=== PATIENT | female | born 2000 | race Caucasian/White ===

== ENCOUNTER → 2020-08-27 14:54 | Outpatient (REF) | payer OTHER, SELFPAY ==
--- NOTE | 2020-08-27 15:02 | ECG_ITS ---
Test Reason : COVID HX Blood Pressure : / mmHG Vent. Rate : 068 BPM Atrial Rate : 068 BPM P-R Int : 110 ms QRS Dur : 074 ms QT Int : 378 ms P-R-T Axes : 013 064 036 degrees QTc Int : 401 ms Sinus rhythm with short KS with Premature atrial complexes Otherwise normal ECG No previous ECGs available Referred By: Jin De Luna Electronically Signed By:David Churchill
== END ==
LOC: HO.CARD 14:54
PROVIDERS: PCP Specialist; Visit Provider Pediatrics
DX: U07.1 COVID-19 (principal)
CPT/HCPCS: 93005

== ENCOUNTER 2025-04-19 10:27 | Outpatient (REF) | payer OTHER, SELFPAY ==
[2025-04-19 14:35] LABS: Hematocrit 38.3 % (37.0-47.0); Hemoglobin 13.1 g/dl (12.0-16.0); Mean Corpuscular HGB Conc 34.2 g/dl (31.0-35.0); Mean Corpuscular Hemoglobin 31.1 pg (27.0-33.0); Mean Corpuscular Volume 91.0 fL (80.0-98.0); NRBC Abs Auto 0.000 X10*3/uL (0.0-0.012); NRBC Pct Auto 0.0 /100WBC (0.0-0.2); Platelet Count 213 X10*3/uL (160-400); Red Blood Count 4.21 X10*6/uL (4.20-5.50); White Blood Count 6.3 X10*3/uL (4.8-10.8)
[2025-04-19 14:52] LABS: Alanine Aminotransferase 11 U/L (0-31); Albumin Level 4.2 g/dL (3.5-5.0); Alkaline Phosphatase 57 U/L (39-117); Anion Gap 8 (12-20); Aspartate Amino Transferase 19 U/L (5-31); Blood Urea Nitrogen 13 mg/dL (9-16); Calcium 8.7 mg/dL (8.4-10.2); Carbon Dioxide 26 mmol/L (22-29); Chloride 108 mmol/L (96-108); Cholesterol 181 mg/dL (<200); Estimated Glomerular Filt Rate > 60; HDL Cholesterol 67 mg/dL (>40); Potassium 4.3 mmol/L (3.3-5.1); Sodium 138 mmol/L (135-145); Total Protein 7.1 g/dL (6.5-8.0); Triglycerides 79 mg/dL (<150)
== END 2025-04-19 10:28 | disposition home or self-care (01) ==
LOC: HO.WFDLDS 10:27
PROVIDERS: PCP Physician Assistant Medical; Visit Provider Physician Assistant Medical
DX: Z00.00 Encounter for general adult medical examination without abnormal findings (principal); Z13.6 Encounter for screening for cardiovascular disorders
CPT/HCPCS: 36415; 80053; 80061; 85027; 96127; 99385

== ENCOUNTER 2025-04-19 10:27 | Outpatient (AMB) | payer OTHER, SELFPAY ==
--- NOTE | 2025-04-19 10:32 | A.OFFPC_ITS ---
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 Patient sees cardiology. Has been since she was a child. Allergies No Known Allergies (No Known Allergies*) Allergy (Unverified 04/19/25 10:34) Tobacco use date assessed: 04/19/25 Dental Screening Dental Screen Date: 04/19/25 Did you have a dental visit in the last 12 months?: Yes Did you have a dental problem in the last 6 months where you did not have access to dental care?: No Was dental information given to patient?: Patient has dentist HPI HPI Comments History of Present Illness Details This is a 24-year-old female with no significant past medical history presenting to establish care. She is due for a physical. Records transfer pending. She is unsure of the date of the last tetanus immunization. She will sign a release form so we can get the records sent over. She goes to [facility] and [facility]. She is on an oral contraceptive pill She saw Cardiology as a child for ectopic beats. This has not been an issue in adulthood. She works at [employer]. She weight lifts and does cardio and follows a healthy diet. She has no medical concerns today. ROS: Constitutional: No unexplained weight loss, fever, chills, fatigue or night sweats. Eyes: No vision changes, blurry vision, double vision, eye pain, eye redness, eye discharge. ENT: No hearing loss, sneezing, congestion, runny nose or sore throat. Respiratory: No shortness of breath, cough or sputum production. Cardiovascular: No chest pain, chest pressure or chest discomfort. No palpitations or pedal edema. Gastrointestinal: No anorexia, nausea, vomiting or diarrhea. No abdominal pain or blood in stool. Genitourinary: No dysuria, hematuria, urinary frequency. Neurologic: No headache, dizziness, syncope, unilateral weakness, ataxia, numbness or tingling in the extremities. Musculoskeletal: No muscle pain, back pain, joint pain or swelling. Hematologic/Lymphatics: No bleeding or bruising. No painful lymph nodes. Skin: No rash or itching. Endocrine: No cold or heat intolerance. No polyuria or polydipsia. Psychiatric: No depression or anxiety. No SI/HI. Physical exam: Constitutional: Alert, in no distress. Head: Normocephalic. Eyes: Pupils are equal, round and reactive to light. Extraocular muscles intact. Ear, Nose and Throat: Canals clear. TMs normal. Normal nasal mucosa. No nasal discharge. No oral lesions. Neck: Supple, Full range of motion. No lymphadenopathy. No palpable thyroid masses. Respiratory: Clear to auscultation. Cardiovascular: S1 S2 regular. No murmurs. Gastrointestinal: Abdomen soft, non-tender, non-distended. Normal bowel sounds. No palpable masses. Neurologic: No focal neurological deficits. Symmetric patellar reflexes. Moves all extremities spontaneously. Sensation intact bilaterally. Skin: symmetric raised brown nevus on left abdomen (stable appearance since childhood). Musculoskeletal: No gross deformities. Normal range of motion. Extremities: Warm and well perfused. No clubbing, cyanosis or edema. Intact peripheral pulses. Psychiatric: Normal mood and affect [facility] Medical History (Updated 04/19/25 @ 11:19 by ANDREIA Hall) Screening for cardiovascular condition Routine physical examination Heart palpitations Surgical History (Updated 04/19/25 @ 10:41 by Sirisha Alfaro MA) History of tonsillectomy Family History (Updated 04/19/25 @ 10:37 by Sirisha Alfaro MA) Mother Hypertension Father Substance abuse Alcoholism Social History (Updated 04/19/25 @ 10:37 by Sirisha Alfaro MA) Housing: Apartment Alcohol intake: current Patient Tobacco Use Status: Never used Tobacco e-Cigarette/Vaping Use: Former Use Second Hand Smoke Exposure: No service: No Current occupational status: employed 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 1. Little interest or pleasure in doing things: not at all 2. Feeling down, depressed, or hopeless: not at all 3. Trouble falling or staying asleep, or sleeping too much: not at all 4. Feeling tired or having little energy: not at all 5. Poor appetite or overeating: not at all 6. Feeling bad about yourself - or that you are a failure or have let yourself or your family down: not at all 7. Trouble concentrating on things, such as reading the newspaper or watching television: not at all 8. Moving or speaking so slowly that other people could have noticed. Or the opposite - being so fidgety or restless that you have been moving around a lot more than usual: not at all 9. Thoughts that you would be better off or of hurting yourself in some way: not at all Total score: 0 Depression Screening Interpretation: Negative Depression Screening Done: Yes 53803 - PHQ-9 Billing: Yes Source: Developed by Drs. John Farooq, Leanne Lewis, Koby Martinez and colleagues, with an educational sam from [employer]. Thrive Questionnaire Date Thrive assessed: 04/19/25 I am a: Patient What is your living situation today?: I have a steady place to live Within the past 12 months, did the food you bought not last and you didn't have the money to get more?: Never true Within the past 12 months, did you worry whether your food would run out before you got money to buy more?: Never true Do you have trouble paying for medicines?: No Do you have trouble getting transportation to medical appointments?: No Do you have trouble paying your heating and electricity bill?: No Do you have trouble taking care of your child, family member or friend?: No Do you have trouble with day-to-day activities such as bathing, preparing meals, shopping, managing finances, etc.?: No Are you currently unemployed and looking for a job?: No Are you interested in more education?: Yes Please select the resources that you would like help with: None Currently or been in a relationship where the following occur: I choose not to answer THRIVE Score: 0 AUDIT C Alcohol Use Questionnaire (AUDIT-C) 1. How often do you have a drink containing alcohol?: 2-4 times a month 2. How many drinks containing alcohol do you have on a typical day when you are drinking?: 5 or 6 3. How often do you have six or more drinks on one occasion?: Monthly Total Score: 6 HAYLEY-7 AMB Questionnaire HAYLEY-7 Date HAYLEY - 7 assessed: 04/19/25 Feeling nervous, anxious, or on edge: 1 = Several days Not being able to stop or control worryin = Not at all Worrying too much about different things: 1 = Several days Trouble relaxin = Not at all Being so restless that it is hard to sit still: 0 = Not at all Becoming easily annoyed or irritable: 0 = Not at all Feeling afraid as if something awful might happen: 0 = Not at all Total HAYLEY-7 score (0-4 normal; 5-9 mild; 10-14 moderate; 15-21 severe): 2 Source: Developed by Drs. John Farooq, Leanne Lewis, Koby Martinez and colleagues, with an educational sam from [employer]. HAYLEY-7 Assessment Billing HAYLEY-7 Assessment Tool: HAYLEY-7 Assessment 28241 Physical exam (Primary Care) Vital Signs: Last Vital Signs Temp 96.9 F 04/19/25 10:38 Pulse 64 04/19/25 10:38 Resp 14 04/19/25 10:38 BP 102/52 L 04/19/25 10:38 Pulse Ox 98 04/19/25 10:38 Oxygen Delivery Method Room Air 04/19/25 10:38 BMI result Body Mass Index 23.4 Tobacco/Smoking Status: Tobacco use Status Tobacco use date assessed 04/19/25 04/19/25 10:40 Patient Tobacco Use Status Never used Tobacco 04/19/25 10:40 e-Cigarette/Vaping Use Former Use 04/19/25 10:40 PHQ-9: PHQ-9 Score PHQ-9: Total score 0 04/19/25 10:40 Depression Screening Interpretation: Negative Thrive Assessment: Date of Thrive Assessment Date Thrive assessed 04/19/25 04/19/25 10:40 Currently or been in a relationship where the following occur: I choose not to answer Coding Level of Care Code New Pt Prev Care 18-39yr(92809 Diagnoses Routine physical examination Z00.00 Screening for cardiovascular condition Z13.6 Additional Codes HAYLEY-7 Assessment Billing - HAYLEY-7 Assessment Tool: HAYLEY-7 Assessment 39779 ([id number]) PHQ-9 - 15420 - PHQ-9 Billing: Yes ([id number]) Assessment & Plan Assessment & Plan (1) Routine physical examination: Code(s): Z00.00 - Encounter for general adult medical examination without abnormal fin dings Category: Medical (2) Screening for cardiovascular condition: Code(s): Z13.6 - Encounter for screening for cardiovascular disorders Category: Medical Plan Patient is seen today for a routine physical. 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 Advised patient to call in 1 month to confirm records are received and check status of tetanus immunization. Orders: Orders Lipid Panel Today Z00.00 - Encounter for general adult medical examination without abnormal findings, Z13.6 - Encounter for screening for cardiovascular disorders Complete Blood Count no Diff Today Z00.00 - Encounter for general adult medical examination without abnormal findings, Z13.6 - Encounter for screening for cardiovascular disorders Comprehensive Met. Panel Today Z00.00 - Encounter for general adult medical examination without abnormal findings, Z13.6 - Encounter for screening for cardiovascular disorders
[2025-04-19 10:38] VITALS: BP 102/52; PULSE 64; RESP 14; TEMP 36.1; O2SAT 98; BMI 23.4
--- OUTSIDE RECORDS SUMMARY | 2025-04-19 11:58 | XMS_ITS | Clinical Summary ---
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 It is not the complete legal health record.[facility]
== END 2025-04-19 11:27 | disposition home or self-care (01) ==
LOC: HO.HMCFM 10:28
PROVIDERS: PCP Physician Assistant Medical; Visit Provider Physician Assistant Medical
DX: Z00.00 Encounter for general adult medical examination without abnormal findings (principal); Z13.6 Encounter for screening for cardiovascular disorders